=== PATIENT | female | born 1975 | race African-American/Black ===

== ENCOUNTER 2018-10-27 10:11 | Emergency (ER) | payer OTHER ==
[~2018-10-27] VITALS: Ht 154.9 cm; Wt 49.4 kg
[~2018-10-27 10:11] MED LIST: IBUPROFEN800 MG ORAL; NKM; VIBRAMYCIN100 MG ORAL
[2018-10-27 10:35] VITALS: BP 149/85
--- NOTE | 2018-10-27 10:35 | NUR ---
ED Nurse Note: pt walked in to ED due to multiples abscess on left lower leg for 2 months. per pt, had multiple abscess and whichever she poped up, not heal. open wounds noted. yellowish discharge noted. AAO x4. respirations even and non-labored noted. at the bed side. will wait for the further order.
[2018-10-27] MEDS ORDERED: IBUPROFEN600 MG ORAL (11:39)
[2018-10-27] MEDS ORDERED: BACTRIM DS TAB1 EAC1 ORAL (11:39)
[2018-10-27] MEDS ORDERED: CEPHALEXIN500 MG ORAL (11:39)
[2018-10-27] MEDS ORDERED: NORCO 5-325 TA1 EACH ORAL (11:39)
--- NOTE | 2018-10-27 11:42 | Emergency Room Report ---
History of Present Illness General Chief Complaint: Skin Rash/Abscess Source: Patient Present Illness HPI 42-year-old female comes here with complaints of redness pain and boils to her left anterior tibial area for the past week. She reports she has had previous posterior and most recently had infections treated in July. Denies fevers, urinary complaints, shortness of breath, vomiting, diarrhea abdominal pain, any other symptoms. She has not been on antibiotics for the last few months. She reports boils around her family and she frequently gets boils in her on her arms and elsewhere also. This current boil has been oozing pus already on its own. Allergies: Uncoded Allergies: SULFA (Allergy, Unknown, 10/27/18) Patient History Past Medical History: see triage record Last Menstrual Period: 10/20/2018 Reviewed Nursing Documentation: PMH: Agreed; PSxH: Agreed Nursing Documentation-PMH Past Medical History: No History, Except For Review of Systems All Other Systems: negative except mentioned in HPI Physical Exam Vital Signs Date Time Temp Pulse Resp B/P (MAP) Pulse Ox O2 Delivery O2 Flow Rate FiO2 10/27/18 10:25 98.1 64 14 149/85 99 Room Air Sp02 EP Interpretation: reviewed, normal General Appearance: no apparent distress, alert, non-toxic Head: normocephalic Eyes: bilateral eye normal inspection, bilateral eye PERRL, bilateral eye EOMI ENT: normal ENT inspection, hearing grossly normal, normal pharynx, no angioedema, normal voice, moist mucus membranes Neck: normal inspection, full range of motion, supple, supple/symm/no masses Respiratory: chest non-tender, lungs clear, normal breath sounds, chest symmetrical, palpation of chest normal Cardiovascular #1: normal peripheral pulses, regular rate, rhythm Cardiovascular #2: 2+ radial (R), 2+ radial (L), 2+ dorsalis pedis (R), 2+ dorsalis pedis (L) Gastrointestinal: normal inspection, non tender, soft, no mass, no guarding, no rebound Rectal: deferred Genitourinary: normal inspection, no CVA tenderness Musculoskeletal: back normal, gait/station normal, normal range of motion, non- tender, no calf tenderness, Jada's Sign negative Neurologic: alert, responsive, 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 III-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 nml as tested, motor strength/tone normal, sensory intact, speech normal Psychiatric: judgement/insight normal, memory normal, mood/affect normal, no suicidal/homicidal ideation Skin: normal color, no rash, warm/dry, normal turgor, other - Open abscess mid anterior tibia left leg, surrounding cellulitis, 2-3 other open ulcer abscess wounds Lymphatic: no adenopathy Medical Decision Making Diagnostic Impression: Primary Impression: Cellulitis Additional Impression: Abscess ER Course Patient has abscess already open and draining, I squeezed it and a little more purulence came out, but it is superficial and I do not suspect deep abscess, with loculations, therefore did not explore further, and will discharge with Bactrim Keflex and analgesics with instructions to return if redness spreads. Last Vital Signs Date Time Temp Pulse Resp B/P (MAP) Pulse Ox O2 Delivery O2 Flow Rate FiO2 10/27/18 10:35 98.1 64 14 149/85 99 Room Air Disposition: HOME, SELF-CARE Condition: Stable Scripts Hydrocodone Bit/Acetaminophen 5-325* (NORCO 5-325*) 1 Each Tablet 1 TAB ORAL Q6H PRN for For Pain, #10 TAB 0 Refills Prov: MARLENE MOFFETT M.D 10/27/18 Ibuprofen* (MOTRIN*) 600 Mg Tablet 600 MG ORAL Q8H PRN for For Pain for 5 Days, #15 TAB 0 Refills Prov: MARLENE MOFFETT.D 10/27/18 Cephalexin* (KEFLEX*) 500 Mg Capsule 500 MG ORAL EVERY 6 HOURS for 7 Days, #28 CAP Prov: MARLENE MOFFETT.D 10/27/18 Trimethoprim/Sulfamethoxazole 160/800* (BACTRIM DS TABLET*) 1 Each Tablet 1 TAB ORAL TID for 7 Days, #21 TAB 0 Refills Prov: MARLENE MOFFETT M.D 10/27/18 Departure Forms: Return to Work Return to Work in (Days): 3 Patient Instructions: Abscess, Cellulitis, [id number] MARLENE MOFFETT M.D Oct 27, 2018 11:42
[2018-10-27] MEDS ORDERED: HYDROcodone/Acetamin 5/325 tab ORAL ONE (11:45)
[2018-10-27 11:53] VITALS: BP 133/78
--- NOTE | 2018-10-27 11:54 | NUR ---
ER DISCHARGE NOTE: Patient is cleared to be discharged per ERMD, pt is aox4, on room air, with stable vital signs. pt was given dc and prescription instructions, pt was able to verbalize understanding, pt id band removed. pt is able to ambulate with steady gait. pt took all belongings.
[2018-10-28] MEDS ORDERED: PHENAZOPYRIDIN100 MG ORAL (15:25)
[2018-10-28] MEDS ORDERED: BENADRYL25 MG ORAL (15:25)
[2018-10-28] MEDS ORDERED: VIBRAMYCIN100 MG ORAL (15:25)
== END 2018-10-27 11:58 | disposition home or self-care (01) ==
LOC: EMR 10:46
DX: L03.116 Cellulitis of left lower limb (principal); L02.416 Cutaneous abscess of left lower limb; Z88.2 Allergy status to sulfonamides
CPT/HCPCS: 99283

== ENCOUNTER 2018-10-28 14:04 | Emergency (ER) | payer OTHER ==
[~2018-10-28] VITALS: Ht 162.6 cm; Wt 49.4 kg
[~2018-10-28 14:04] MED LIST changes: +BACTRIM DS TAB1 EAC1 ORAL; +CEPHALEXIN500 MG ORAL; +IBUPROFEN600 MG ORAL; +NORCO 5-325 TA1 EACH ORAL
--- NOTE | 2018-10-28 14:37 | Emergency Room Report ---
History of Present Illness General Chief Complaint: Allergic Reaction Source: Patient, Medical Record Present Illness HPI 42-year-old female patient presents the ER complaining of allergic reaction to medication this morning. States she was previously seen here yesterday for abscess and discharged home with Keflex and Bactrim. States that she began taking the Bactrim this morning and began to experience allergic symptoms, states that she has an allergy to sulfa. Reports that this has happened previous in the past, states that she does not carry an EpiPen. Reports that she developed throat closing, pelvic swelling and dysuria after taking medication. Denies hematuria or vaginal discharge. Reports no rash or lesions in the pelvic region. Reports able to breathe without difficulty. States is not taking any Benadryl or other medications. states she contacted the ER was told to return to the ER immediately. Denies hives. Allergies: Coded Allergies: SULFA (SULFONAMIDE ANTIBIOTICS) (Verified Allergy, Unknown, 10/28/18) SULFAMETHOXAZOLE (Verified Allergy, Unknown, 10/28/18) TRIMETHOPRIM (Verified Allergy, Unknown, 10/28/18) Uncoded Allergies: SULFA (Allergy, Unknown, 10/27/18) Patient History Past Medical History: see triage record Last Menstrual Period: Now: No : 4 Para: 0 Reviewed Nursing Documentation: PMH: Agreed; PSxH: Agreed Review of Systems All Other Systems: negative except mentioned in HPI Physical Exam Vital Signs Date Time Temp Pulse Resp B/P (MAP) Pulse Ox O2 Delivery O2 Flow Rate FiO2 10/28/18 14:10 99.1 75 18 148/86 96 Room Air Sp02 EP Interpretation: reviewed, normal General Appearance: well appearing, no apparent distress, alert, GCS 15, non- toxic Head: normocephalic, atraumatic Eyes: bilateral eye normal inspection, bilateral eye PERRL ENT: hearing grossly normal, normal pharynx, no angioedema, normal voice, TMs + canals normal, uvula midline, moist mucus membranes Neck: full range of motion, no meningismus, no bony tend Respiratory: lungs clear, normal breath sounds, no rhonchi, no respiratory distress, no accessory muscle use, no wheezing, speaking full sentences Cardiovascular #1: regular rate, rhythm, no edema Gastrointestinal: non tender, soft, no mass, non-distended, no guarding, no rebound Genitourinary: no CVA tenderness, deferred Musculoskeletal: back normal, digits/nails normal, gait/station normal, normal range of motion, non-tender Neurologic: alert, oriented x3, responsive, motor strength/tone normal, sensory intact Skin: no rash, other - Open abscess on mid left anterior tibia, 2-3 other surrounding ulcers, no draining Medical Decision Making PA Attestation Dr. Dominguez is my supervising Physician whom patient management has been discussed with. Diagnostic Impression: Primary Impression: Allergic reaction to drug Additional Impression: Dysuria ER Course Pt. presents to the ED c/o allergic reaction to medication, dysuria, pelvic swelling. Ddx considered but are not limited to allergic reaction to medication, anaphylaxis, angioedema, urinary tract infection, bacterial vaginosis, cellulitis, urticaria. Vital signs: are WNL, pt. is afebrile ER COURSE: Provide patient with Benadryl. Patient in the ER with her significant other who will drive her home. Lungs clear to auscultation, no wheezes rhonchi rales, patient speaking full sentences, no angioedema, low suspicion for life-threatening anaphylaxis. Patient declined exam of pelvic region to examination this swelling symptoms, states that "this is normal" and does not want to be examined. UA remarkable, low suspicion for UTI. Follow-up with specialist. Urine negative Open open abscess noted on mid anterior tibia of left leg consistent with previous visit yesterday. Discontinue Bactrim use, will provide with doxycycline. Follow-up with sales enablement specialist. ER precautions given. DISCHARGE: At this time pt is stable for d/c to home. Patient is resting comfortably, in no acute distress, nontoxic appearing, talking without difficulty. Patient to take medications as instructed Will provide with patient care instructions and any necessary prescriptions. Care plan and follow-up instructions provided. Patient instructed to follow-up with primary care provider in 3 - 5 days. Patient questions asked and answered. Patient reports understanding and agreement to treatment plan. ER precautions given. Patient instructed to return to ER immediately for any new or worsening of symptoms including but not limited to increasing SOB, persistent fever, chest pain, intractable vomiting. - Please note that this Emergency Department Report was dictated using [email or web address] service administrator technology software, occasionally this can lead to erroneous entry secondary to interpretation by the dictation equipment. Labs Test 10/28/18 14:50 Urine Color Pale yellow Urine Appearance Clear Urine pH 7 (4.5-8.0) Urine Specific [place] 1.005 (1.005-1.035) Urine Protein Negative (NEGATIVE) Urine Glucose (UA) Negative (NEGATIVE) Urine Ketones Negative (NEGATIVE) Urine Blood Negative (NEGATIVE) Urine Nitrite Negative (NEGATIVE) Urine Bilirubin Negative (NEGATIVE) Urine Urobilinogen Normal MG/DL (0.0-1.0) Urine Leukocyte Esterase 1+ (NEGATIVE) Urine RBC 0 /HPF (0 - 2) Urine WBC 0-2 /HPF (0 - 2) Urine Squamous Epithelial Cells Occasional /LPF Urine Bacteria Occasional /HPF (NONE) Urine HCG, Qualitative Negative (NEGATIVE) Last Vital Signs Date Time Temp Pulse Resp B/P (MAP) Pulse Ox O2 Delivery O2 Flow Rate FiO2 10/28/18 14:10 99.1 75 18 148/86 96 Room Air Status: improved Disposition: HOME, SELF-CARE Condition: Stable Scripts Diphenhydramine Hcl* (BENADRYL*) 25 Mg Capsule 25 MG ORAL Q6H PRN for Itching, #30 CAP Prov: Malachi Benoit 10/28/18 Phenazopyridine Hcl* (PYRIDIUM*) 100 Mg Tablet 100 MG ORAL THREE TIMES A DAY, #15 TAB Prov: Malachi Benoit 10/28/18 Doxycycline Hyclate* (VIBRAMYCIN*) 100 Mg Capsule 100 MG ORAL EVERY 12 HOURS, #14 CAP 0 Refills Prov: Malachi Benoit 10/28/18 Patient Instructions: Allergies, Dysuria Additional Instructions: Followup with primary care provider in 3 -5 days. Take medications as directed. Take Benadryl. May cause drowsiness. Follow-up with sales enablement specialist. Follow-up with specialist. Take Pyridium for pain symptoms. Side effect may turn urine orange. Drink plenty of fluids. Patient questions asked and answered. ER precautions given, patient instructed to return to ER immediately for any new or worsening of symptoms. Malachi Benoit Oct 28, 2018 14:37
--- NOTE | 2018-10-28 14:38 | NUR ---
ED Nurse Note: PT WALKED IN TO ER TODAY FROM HOME. AOX4. PT STATES SHE WAS SEEN YESTERDAY [place] [facility] AND GIVEN RX FOR KEFLEX AND BACTRIM DS. PT STATES SHE IS HAVING AN ALLERGIC RXN TO BACTRIM AND C/O VAGINAL SWELLING AND TIGHTNESS IN THROAT X 2 HOURS AGO. PT STATES THESE ARE TYPICAL SYMPTOMS THAT SHE EXPERIENCES WHEN HAVING A REACTION. PT STATES SYMPTOMS HAVE RESOLVED. RR16 WITH O2 SAT 98% ON RA.
[2018-10-28 14:43] VITALS: BP 138/82
[2018-10-28 14:58] LABS: APPEARANCE,URINE CLEAR; BILIRUBIN, URINE NEGATIVE (NEGATIVE); COLOR,URINE PALE YELLOW; GLUCOSE, URINE (UA) NEGATIVE (NEGATIVE); KETONES,URINE NEGATIVE (NEGATIVE); LEUKOCYTE ESTERASE ,URINE 1+ (NEGATIVE); NITRITE,URINE NEGATIVE (NEGATIVE); PH,URINE 7 (4.5-8.0); PROTEIN,URINE NEGATIVE (NEGATIVE); UROBILINOGEN,URINE NORMAL MG/DL (0.0-1.0)
[2018-10-28] MEDS ORDERED: BENADRYL25 MG ORAL (15:25)
[2018-10-28] MEDS ORDERED: PHENAZOPYRIDIN100 MG ORAL (15:25)
[2018-10-28] MEDS ORDERED: VIBRAMYCIN100 MG ORAL (15:25)
[2018-10-28 15:33] VITALS: BP 132/76
--- NOTE | 2018-10-28 15:33 | NUR ---
ED Nurse Note: PT SITTING PEACEFULLY IN BED IN NAD. AOX4. PRESCRIPTIONS AND DISCHARGE PAPERWORK EXPLAINED TO PT. PT VERBALIZES UNDERSTANDING AND ALL QUESTIONS ANSWERED. PRESCRIPTIONS AND DISCHARGE PAPERWORK GIVEN TO PT AND ID WRISTBAND REMOVED. PT WALKED OUT OF ER WITH STEADY GAIT AND ALL BELONGINGS.
== END 2018-10-28 15:34 | disposition home or self-care (01) ==
LOC: EMR 14:50
DX: T37.0X5A Adverse effect of sulfonamides, initial encounter (principal); R30.0 Dysuria; Z88.1 Allergy status to other antibiotic agents; Y92.9 Unspecified place or not applicable
CPT/HCPCS: 81003; 81025; 99283

== ENCOUNTER → 2019-07-30 | Emergency (ER) | payer OTHER ==
[~2019-07-30] VITALS: Ht 162.6 cm; Wt 49.9 kg
[~2019-07-30] MED LIST changes: +BENADRYL25 MG ORAL; +LORazepam 0.5mg tab ORAL ONE; +PHENAZOPYRIDIN100 MG ORAL
--- NOTE | 2019-07-30 11:19 | NUR ---
ED Nurse Note: Pt ambulated to ED with c/o LT elbow pain with 10/10 pain scale. Pt is AOx4, calm and cooperative. Per pt she had a hx of fall a week ago. Latest BP: 178/105. Placed on bed and gown; hooked to monitor.
[2019-07-30 11:25] VITALS: BP 178/105
--- NOTE | 2019-07-30 11:25 | NUR ---
ED Nurse Note: Latest BP 132/127. Pt verbalized "I smoked one cigarette this morning". Pt on bed, talking on her phone. No signs of acute distress.
--- NOTE | 2019-07-30 12:33 | Emergency Room Report ---
History of Present Illness General Chief Complaint: Upper Extremity Injury Source: Patient Present Illness HPI 43-year-old female presents to emergency room status post fall onto left elbow. Patient reports pain with flexion and extension of elbow. Patient denies any other injuries. Patient reports drinking alcohol most days in the evenings. She reports increased drinking the last several weeks. She reported falling while drinking alcohol. She denies any head injury. She would like to go to work today and so wanted to make sure she was okay. She denies any history of hypertension. Allergies: Coded Allergies: SULFA (SULFONAMIDE ANTIBIOTICS) (Verified Allergy, Unknown, 10/28/18) SULFAMETHOXAZOLE (Verified Allergy, Unknown, 10/28/18) TRIMETHOPRIM (Verified Allergy, Unknown, 10/28/18) Uncoded Allergies: SULFA (Allergy, Unknown, 10/27/18) Patient History Last Menstrual Period: 07/29/19 Nursing Documentation-[facility] Past Medical History: No Stated History Review of Systems Constitutional: Denies: chills, fever Respiratory: Denies: cough, shortness of breath Cardiovascular: Denies: chest pain, palpitations Gastrointestinal: Denies: diarrhea, vomiting Genitourinary: Denies: hematuria, pain Musculoskeletal: Reports: joint pain; Denies: joint swelling Skin: Denies: rash, lesions Neurological: Denies: headache, dizziness Physical Exam Vital Signs Date Time Temp Pulse Resp B/P (MAP) Pulse Ox O2 Delivery O2 Flow Rate FiO2 07/30/19 11:17 98.1 78 16 178/105 (129) 96 Room Air Sp02 EP Interpretation: reviewed General Appearance: well appearing, no apparent distress, non-toxic Head: normocephalic, atraumatic Eyes: bilateral eye normal inspection ENT: hearing grossly normal, EOM grossly intact, moist mucus membranes Neck: supple Respiratory: lungs clear, normal breath sounds, no respiratory distress, speaking full sentences Cardiovascular #1: regular rate, rhythm, no edema, normal capillary refill Cardiovascular #2: 2+ radial (R), 2+ radial (L) Gastrointestinal: soft, no mass, non-distended Rectal: deferred Musculoskeletal: moves extm spontaneously, other - Left elbow tender to palpation over olecranon. Range of motion full however noted to be painful. Neurologic: grossly normal Psychiatric: mood/affect normal Skin: warm/dry, normal turgor Medical Decision Making Diagnostic Impression: Primary Impression: Injury of left elbow ER Course 43-year-old female status post fall reporting pain to left elbow. Range of motion full but reported tenderness over olecranon. 2+ radial pulse. Patient found to be hypertensive. No known history of hypertension however noted alcohol abuse history. Will give pain medication, Ativan, and perform x-rays to evaluate for injury. Other X-Ray Diagnostic Results Other X-Ray Diagnostic Results : X-Ray ordered: Elbow x-ray # of Views/Limited Vs Complete: 3 View Indication: Pain Interpretation: no dislocation, no fractures, other - Mild amount of soft tissue swelling noted Impression: No acute disease Last Vital Signs Date Time Temp Pulse Resp B/P (MAP) Pulse Ox O2 Delivery O2 Flow Rate FiO2 07/30/19 11:25 98.1 81 14 178/105 100 Room Air Disposition: HOME, SELF-CARE Condition: Stable Referrals: Orthopedic Urgent Care Patient Instructions: Elbow Bursitis Additional Instructions: Please follow-up with orthopedic clinic in 2 to 3 days for reevaluation. Recommend rest and limited use of injured elbow. Vernon Doll M.D. Jul 30, 2019 12:33
--- NOTE | 2019-07-30 12:46 | NUR ---
ED Nurse Note: x ray being performed at bedside.
--- NOTE | 2019-07-30 13:28 | NUR ---
ED Nurse Note: ERMD on bedside.
[2019-07-30 13:35] VITALS: BP 159/96
--- NOTE | 2019-07-31 07:59 | Diagnostic Imaging Report ---
Indications:Elbow pain Technique: Three or 4 views of the left elbow Comparison: None Findings: No definite joint effusion. No acute fractures. No dislocations. Joint spaces are preserved Impression: Negative
== END | disposition home or self-care (01) ==
LOC: EMR 11:52
DX: S59.902A Unspecified injury of left elbow, initial encounter (principal); W19.XXXA Unspecified fall, initial encounter; Y92.9 Unspecified place or not applicable; Z88.2 Allergy status to sulfonamides; I10 Essential (primary) hypertension
CPT/HCPCS: 73080; 93005; Z7502; 99283